=== PATIENT | male | born 1940 | race Caucasian/White ===

== ENCOUNTER 2020-09-05 22:37 | Emergency (ER) | payer OTHER ==
[~2020-09-05] VITALS: Ht 177.8 cm; Wt 136.1 kg
[2020-09-05] MEDS ORDERED: PROAIR HFA8.5 GM INH (22:56)
[2020-09-05] MEDS ORDERED: FISH OIL 1,0001 EAC9 PO (22:57)
[2020-09-05] MEDS ORDERED: CARVEDILOL12.5 MG PO (22:57)
[2020-09-05] MEDS ORDERED: ASA81BEC PO (22:57)
[2020-09-05] MEDS ORDERED: METFORMIN HCL500 M3 PO (22:58)
[2020-09-05] MEDS ORDERED: FLAX OIL1000 MG PO (22:58)
[2020-09-05] MEDS ORDERED: COZAAR 25 MG TA25 M1 PO (22:58)
[2020-09-05] MEDS ORDERED: FUROSEMIDE 40 M40 MG PO (22:58)
[2020-09-05] MEDS ORDERED: TAPAZOLE5 MG PO (22:58)
[2020-09-05] MEDS ORDERED: PRAVACHOL 20 MG20 M1 PO (22:59)
[2020-09-05 23:33] LABS: ABSOLUTE BASOPHILS 0.1 thou/uL (0.0-0.2); ABSOLUTE EOSINOPHILS 0.2 thou/uL (0.0-0.7); ABSOLUTE LYMPHOCYTES 2.7 thou/uL (0.8-5.3); ABSOLUTE MONOCYTES 0.9 thou/uL (0.0-1.2); BASOPHILS 1.1 %; EOSINOPHILS 1.9 %; HEMATOCRIT 48.1 % (42.0-52.0); LYMPHOCYTES 30.4 %; MCH 27.1 pg (26.0-34.0); MCHC 33.2 g/dL (28.0-37.0); MCV 81.8 fL (80.0-100.0); MONOCYTES 9.8 %; MPV 7.6 fl. (7.2-11.1); NUCLEATED RBCS 0 /100WBC; PLATELET COUNT* 237 thou/uL (150-400); POLYS 56.8 %; RBC 5.88 mil/uL (4.50-6.00); RDW-CV 14.7 % (10.5-14.5); WBC 8.7 thou/uL (4.0-11.0)
[2020-09-05 23:42] LABS: CALCIUM 9.2 mg/dL (8.5-10.1); CREATININE 1.4 mg/dL (0.6-1.3); POTASSIUM 3.6 mmol/L (3.5-5.1)
[2020-09-05 23:45] LABS: INR 1.1
[2020-09-05 23:53] LABS: ALBUMIN 3.6 g/dL (3.4-5.0); MAGNESIUM 1.9 mg/dL (1.8-2.4); TOTAL BILIRUBIN 2.2 mg/dL (<0.1-1.0); TOTAL PROTEIN 8.1 g/dL (6.4-8.2)
[2020-09-06 02:15] VITALS: BP 152/68
--- NOTE | 2020-09-06 10:54 | EKG ---
[place] [address] ELECTROCARDIOGRAM REPORT Name: MIRAMONTESMAGGIE EDWARDS Room: [facility]#: [id number] Admission: 09/05/20 Attend Phys: Discharge: 09/06/20 Date of : 40 Date of Service: 09/05/202252 Report #: [id number] THIS REPORT FOR: //name// [facility] ED Test Date: 2020-09-05 Test Time: 22:53:17 Pat Name: MAGGIE MIRAMONTES Department: Room: Gender: Speech Language Pathologist Assistant: [place] : 1940 Requested By: Sherice Randhawa Order Number: [id number] MD: Frankie Dalton Measurements Intervals [place] Rate: 63 P: HI: QRS: 27 QRSD: 104 T: 51 QT: 424 QTc: 435 Interpretive Statements Atrial fibrillation No previous ECG available for comparison Electronically Signed On 09-06-2020 10:54:03 CDT by Frankie Dalton [email or web address] <ELECTRONICALLY SIGNED> By: Frankie Dalton MD, [facility] 09/06/20 1054 52 52 Frankie Dalton MD, FACC /EPI
== END 2020-09-06 02:16 | disposition home or self-care (01) ==
LOC: M.ERS 22:37
PROVIDERS: Emergency Medicine
DX: I10 Essential (primary) hypertension (principal); Z90.49 Acquired absence of other specified parts of digestive tract; Z79.899 Other long term (current) drug therapy